=== PATIENT | female | born 1940 | race Caucasian/White ===

== ENCOUNTER 2017-10-05 00:38 | Emergency (ER) | payer OTHER ==
[~2017-10-05] VITALS: Ht 160 cm; Wt 75.9 kg
[~2017-10-05 00:38] MED LIST: AMOX1TAB64 PO; ASPI-496 PO; CIME200T6 PO; EZET1TAB30 PO; HYDR12.58 PO; LISI-167 PO; LOVA10TA PO; METF500T4 PO; OMEP-110 PO; PARO40TA61 PO
[2017-10-05] MEDS ORDERED: CHOL100011 PO (01:28)
[2017-10-05] MEDS ORDERED: OMEG-76 PO (01:28)
[2017-10-05] MEDS ORDERED: SODIUM CHLORIDE FLUSH 10ML SYR IVF ONE (02:00)
[2017-10-05 02:14] LABS: BASOPHILS # (AUTO) 0.01 x10^3/uL (0-0.1); BASOPHILS % (AUTO) 0 % (0-1); EOSINOPHILS # (AUTO) 0.06 x10^3/uL (0-0.4); EOSINOPHILS % (AUTO) 1 % (1-7); LYMPHOCYTES # (AUTO) 0.78 x10^3/uL (1-3.4); LYMPHOCYTES % (AUTO) 13 % (22-44); MD NO; MEAN CORPUSCULAR HEMOGLOBIN 31.1 pg (27.0-34.8); MEAN CORPUSCULAR VOLUME 94.2 fL (80-100); MEAN PLATELET VOLUME 9.9 fL (7.4-10.4); MONOCYTES # (AUTO) 0.51 x10^3/uL (0.2-0.8); MONOCYTES % (AUTO) 9 % (2-9); NEUTROPHILS # (AUTO) 4.62 x10^3/uL (1.8-6.8); NEUTROPHILS % (AUTO) 77 % (42-75); PLATELET COUNT 174 x10^3/uL (130-400); RED BLOOD COUNT 4.51 x10^6/uL (3.82-5.3); RED CELL DISTRIBUTION WIDTH 13.8 % (9.6-15.2)
[2017-10-05 02:24] LABS: ALANINE AMINOTRANSFERASE 14 U/L (12-78); ALBUMIN 2.8 g/dL (3.4-5.0); ANION GAP 7 mmol/L (5-15); CALCIUM 8.3 mg/dL (8.5-10.1); CHLORIDE 107 mmol/L (98-107); CREATININE 0.97 mg/dL (0.55-1.02)
[2017-10-05 02:28] LABS: ALKALINE PHOSPHATASE 79 U/L (45-117); BILIRUBIN,TOTAL 0.4 mg/dL (0.2-1.0); TOTAL PROTEIN 6.5 g/dL (6.4-8.2); TROPONIN I < 0.015 ng/mL (0.000-0.045)
[2017-10-05 03:05] VITALS: BP 122/52
== END 2017-10-05 03:32 | disposition home or self-care (01) ==
LOC: ED 03:26
DX: J43.9 Emphysema, unspecified (principal); I50.9 Heart failure, unspecified; E78.00 Pure hypercholesterolemia, unspecified; E11.9 Type 2 diabetes mellitus without complications; I10 Essential (primary) hypertension; K21.9 Gastro-esophageal reflux disease without esophagitis; Z86.73 Personal history of transient ischemic attack (TIA), and cerebral infarction without residual deficits
CPT/HCPCS: 36415; 71045; 80053; 83880; 84484; 85025; 93005; 99285

== ENCOUNTER 2020-05-31 19:41 | Emergency (ER) | payer MEDICARE ==
[~2020-05-31] VITALS: Ht 157.5 cm; Wt 75.5 kg
[~2020-05-31 19:41] MED LIST changes: +CHOL100011 PO; -HYDR12.58 PO; +HYDROCHLOROTH12.5 MG PO; +METF500T17 PO; -METF500T4 PO; +OMEG-76 PO
[2020-05-31 19:45] VITALS: BP 160/77
[2020-05-31] MEDS ORDERED: HYDROcodone/APAP 5/325 TABLET ONE (20:12)
[2020-05-31] MEDS ORDERED: DIPH,PERTUSS(ACELL),TET VAC/PF 0.5 ML IM-VACC ONE ×2 (20:12→21:30)
[2020-05-31] MEDS ORDERED: L.E.T SOLUTION TP ONE ×2 (20:17→20:30)
--- NOTE | 2020-05-31 20:21 | NUR ---
TASK RN: PT REFUSED NORCO. LET APPLIED
[2020-05-31] MEDS ORDERED: HYDROcodone/APAP 5/325 TABLET PO ONE (20:30)
== END 2020-05-31 22:13 | disposition home or self-care (01) ==
LOC: ED 20:57
DX: S61.552A Open bite of left wrist, initial encounter (principal); I10 Essential (primary) hypertension; E11.9 Type 2 diabetes mellitus without complications; J44.9 Chronic obstructive pulmonary disease, unspecified; K21.9 Gastro-esophageal reflux disease without esophagitis; E78.5 Hyperlipidemia, unspecified; E78.00 Pure hypercholesterolemia, unspecified; Z86.73 Personal history of transient ischemic attack (TIA), and cerebral infarction without residual deficits; Z90.710 Acquired absence of both cervix and uterus; W54.0XXA Bitten by dog, initial encounter; Y93.89 Activity, other specified; Y92.89 Other specified places as the place of occurrence of the external cause; Y99.8 Other external cause status
CPT/HCPCS: 90471; 90715; 99283

== ENCOUNTER 2020-06-03 19:20 | Emergency (ER) | payer MEDICARE ==
[~2020-06-03] VITALS: Ht 157.5 cm; Wt 76.2 kg
--- NOTE | 2020-06-03 20:01 | NUR ---
Pt here for wound care follow up. Recent dog bite to left hand. Denies pain. Family at bedside.
--- NOTE | 2020-06-03 20:57 | NUR ---
Provider at bedside
[2020-06-03] MEDS ORDERED: NEOSPORIN OINT. PKT 1 PACKET ONE (21:52)
--- NOTE | 2020-06-03 22:02 | NUR ---
Wound dressed prior to DC
[2020-06-03 22:03] VITALS: BP 136/61
== END 2020-06-03 22:06 | disposition home or self-care (01) ==
LOC: ED 21:19
DX: S61.452D Open bite of left hand, subsequent encounter (principal); X58.XXXD Exposure to other specified factors, subsequent encounter; I10 Essential (primary) hypertension
CPT/HCPCS: 99281

== ENCOUNTER → 2020-07-09 | Outpatient (CLI) | payer MEDICARE | END | disposition home or self-care (01) | LOC: CFH 09:22 | PROVIDERS: ATTEND Nurse Practitioner | DX: M81.0 Age-related osteoporosis without current pathological fracture (principal); N95.9 Unspecified menopausal and perimenopausal disorder | CPT/HCPCS: 77080 ==

== ENCOUNTER 2021-06-10 16:20 | Emergency (ER) | payer MEDICARE, OTHER ==
[~2021-06-10] VITALS: Ht 152.4 cm; Wt 79.3 kg
[2021-06-10 16:40] VITALS: BP 141/82
--- NOTE | 2021-06-10 16:44 | NUR ---
PT SWABBED FOR COVID IN TRIAGE. EKG PERFORMED IN TRIAGE.
== END 2021-06-10 17:32 | disposition left against medical advice (07) ==
LOC: ED 16:45
DX: R07.9 Chest pain, unspecified (principal); Z20.822 Contact with and (suspected) exposure to COVID-19; R06.00 Dyspnea, unspecified; R05 Cough
CPT/HCPCS: 93005; 99284; U0003; U0005